=== PATIENT | male | born 1995 | race Two or more races ===

== ENCOUNTER 2025-03-06 13:13 | Inpatient (IN) | payer OTHER ==
[2025-03-06 14:19] VITALS: BMI 34.2
[2025-03-06] MEDS ORDERED: ONDANSETRON *ODT* 4 MG TABLET SL PRN (14:47)
[2025-03-06] MEDS ORDERED: IBUPROFEN 600 MG TABLET (FP) PO PRN (14:47)
[2025-03-06] MEDS ORDERED: LOPERAMIDE HCL 2 MG CAPSULE PO PRN (14:47)
[2025-03-06] MEDS ORDERED: MAG HYDROX/AL HYDROX/SIMETH 30 ML UNIT-DOSE CUP PO PRN (14:47)
[2025-03-06] MEDS ORDERED: guaiFENesin 600 MG TABLET.ER (FP) PO PRN (14:47)
[2025-03-06] MEDS ORDERED: hydrOXYzine PAMOATE 25 MG CAPSULE (FP) PO PRN (14:47)
[2025-03-06] MEDS ORDERED: POLYETHYLENE GLYCOL (HEALTHYLAX) 3350 17 GM PACKET PO PRN (14:47)
[2025-03-06] MEDS ORDERED: NALOXONE (NARCAN) HCL 4 MG/0.1 ML SPRAY NS PRN (14:47)
[2025-03-06] MEDS ORDERED: DICYCLOMINE HCL 10 MG CAPSULE PO PRN (14:47)
[2025-03-06] MEDS ORDERED: BENZONATATE 200 MG CAPSULE PO PRN (14:47)
[2025-03-06] MEDS ORDERED: MAGNESIUM HYDROX 2400MG/30ML ORAL SUSPENSION 30 ML CUP PO PRN (14:47)
[2025-03-06] MEDS ORDERED: BENZOCAINE/MENTHOL (CHLORASEPTIC ) LOZENGE MM PRN (14:47)
[2025-03-06] MEDS ORDERED: IBUPROFEN 400 MG TABLET (FP) PO PRN (14:47)
[2025-03-06] MEDS ORDERED: BISMUTH SUBSALICYLATE 262 MG/15 ML BTL PO PRN (14:47)
[2025-03-06] MEDS ORDERED: ACETAMINOPHEN 325 MG TABLET (FP) PO PRN (14:47)
[2025-03-06] MEDS ORDERED: ALBUTEROL SO4 HFA INHALER IH PRN (18:10)
[2025-03-06] MEDS: MONTELUKAST NA 10 MG TABLET PO SCH (22:29)
[2025-03-06] MEDS: THIAMINE 100 MG TABLET PO SCH (22:29)
[2025-03-06] MEDS: METHOCARBAMOL 500 MG TABLET PO PRN (22:30)
[2025-03-06] MEDS: MELATONIN 5 MG TABLETS PO SCH (22:30)
[2025-03-07 09:52] LABS: MCHC 34.4 g/dl (32.3-36.5); MEAN CELL VOLUME 80.3 fl (79.0-92.2); MEAN PLT VOLUME 10.3 fl (9.4-12.4); RDW 13.6 % (11.9-15.3)
[2025-03-07 09:59] LABS: CO2 26 mmol/L (21-32); CREATININE 0.9 mg/dL (0.55-1.3); GLUCOSE,RANDOM 87 mg/dL (74-106); SGOT/AST 18 U/L (15-37); SGPT/ALT 25 U/L (13-61)
[2025-03-07] MEDS: NICOTINE 14 MG/24 HOURS TOPICAL PATCH TD SCH (10:00)
[2025-03-07] MEDS: PRENATAL VITAMINS W/ FOLIC ACID TABLET (FP) PO SCH (10:01)
[2025-03-07 10:04] LABS: ALK PHOS 57 U/L (45-117); TOT PROT 6.9 g/dl (6.4-8.2)
[2025-03-07] MEDS: traZODone HCL 50 MG TABLET (FP) PO SCH (22:24)
[2025-03-16] MEDS: MIRTAZAPINE 15 MG TABLET (FP) PO SCH (13:08)
[2025-03-16] MEDS: GABAPENTIN 100 MG CAPSULE PO SCH (13:08)
[2025-03-20] MEDS: NICOTINE POLACRILEX 2 MG GUM BUC PRN (10:06)
[2025-03-21] MEDS: NICOTINE POLACRILEX 4 MG GUM BUC PRN (10:22)
[2025-03-22 22:26] VITALS: RESP 18
[2025-03-24 06:46] VITALS: TEMP 97
[2025-03-24 09:30] VITALS: BP 132/64; PULSE 76
== END 2025-03-24 10:30 | disposition home or self-care (01) | DRG 895 ==
LOC: YASAS 13:13 → Y6N 17:39 → Y3NR 03-10 14:13 → Y3E 03-12 10:20 → Y5N 03-12 11:16
PROVIDERS: ADMIT Allergy & Immunology; ATTEND Psychiatry & Neurology Pain Medicine
PROC: HZ42ZZZ Group Counseling for Substance Abuse Treatment, Cognitive-Behavioral (ICD-10-PCS; principal; 2025-03-06)
DX: F10.20 Alcohol dependence, uncomplicated (principal); F90.9 Attention-deficit hyperactivity disorder, unspecified type; F17.210 Nicotine dependence, cigarettes, uncomplicated; G47.00 Insomnia, unspecified; F41.8 Other specified anxiety disorders
CPT/HCPCS: 36415; 71045-TC-FY; 80053; 80305; 80307; 82140; 85027; 86480; 86780; 87811; 93005; 93010